=== PATIENT | male | born 1980 | race Hispanic/Latino ===

== ENCOUNTER 2018-10-27 10:49 | Observation (INO) | payer OTHER ==
[~2018-10-27] VITALS: Ht 170.2 cm; Wt 86.2 kg
--- OUTSIDE RECORDS SUMMARY | 2018-10-27 10:51 | XMS REPORT | Clinical Summary ---
Author Author AR[facility] Address Unknown Phone Unavailable Care Team Providers Care Academic Intern Name Role Phone Pcp, No PCP Unavailable Allergies No Known Allergies Medications End Date Status Medication Sig Dispensed Refills Start Date Active omega-3 fatty acids-fish Take 2 g by 0 oil 340-1,000 mg Cap per mouth 2 (two) capsule times daily. Active Problems Problem Noted Date Achilles rupture, right 10/26/2018 Encounters Care Team Description Date Type Specialty Deb Morales RN Follow-up 10/27/2018 Telephone Anesthesiology Iggy Robertson MD REPAIR,ACHILLES TENDON 10/26/2018 Surgery Randell Ugalde MD 10/26/2018 Anesthesia Event Iggy Robertson MD 10/26/2018 Hospital Encounter after 10/26/2017 Social History Date Tobacco Use Types Packs/Day Years Used Never Smoker Smokeless Tobacco: Never Used Alcohol Use Drinks/Week oz/Week Comments Yes occ Sex Assigned at Date Recorded Not on file Industry Job Start Date Occupation Not on file Not on file Not on file Travel End Travel History Travel Start No recent travel history available. Last Filed Vital Signs Time Taken Vital Sign Reading 10/26/2018 12:50 PM CDT Blood Pressure 122/69 10/26/2018 12:50 PM CDT Pulse 74 10/26/2018 12:50 PM CDT Temperature 36.6 C (97.9 F) 10/26/2018 12:50 PM CDT Respiratory Rate 16 10/26/2018 12:50 PM CDT Oxygen Saturation 98% - Inhaled Oxygen - Concentration 10/26/2018 8:23 AM CDT Weight 83.1 kg (183 lb 1.6 oz) 10/26/2018 8:23 AM CDT Height 170.2 cm (5' 7") 10/26/2018 8:23 AM CDT Body Mass Index 28.68 Plan of Treatment Not on file Implants Device Identifier Shelf Expiration Date Model / Serial / Lot Implanted Type Area Manufactur er 10/22/2019 [id number] / / [id number] Sys Bio Comp Achilles Mid Sub IMPLANTS [employer] [id number] - [id number] Implanted: Qty: 1 on 10/26/2018 by Iggy Robertson MD 02/20/2023 [id number] / / [id number] Pars Suture Implant System [employer] Implanted: Qty: 1 on 10/26/2018 by Iggy Robertson MD Procedures Comments Procedure Name Priority Date/Time Associated Diagnosis UT AN PERINEURAL CATH - Routine 10/26/2018 NO CHARGE 10:01 AM CDT after 10/26/2017 Results * ANESTHESIA PERIPHERAL BLOCK (10/26/2018 10:01 AM CDT) Narrative Performed At [facility] 10/26/2018 10:02 AM Peripheral Block Patient location during procedure: pre-procedure Start time: 10/26/2018 9:36 AM End time: 10/26/2018 9:54 AM Procedure Indication: procedure for pain, at surgeon's request and post-op pain management Preanesthetic Checklist Completed: patient identified, pre-op evaluation, timeout performed, IV checked, risks and benefits discussed, monitors and equipment checked, anesthesia consent given, prep site dry prior to draping and maximum sterile barriers were used: cap, mask, sterile gown, sterile gloves, and large sterile sheet Staffing Anesthesiologist: Andre Thompson MD Resident/CARTON CATCHER: [facility] Performed: personally Prep Prep: chlorhexidine gluconate and isopropyl alcohol Procedures: sterile gloves, surgical mask, surgical hat, sterile technique and prep and sterile drape applied Peripheral Nerve Block Patient position: prone Patient monitoring: EKG, HR, BP and SpO2 Laterality: right Block type: popliteal Injection technique: catheter ultrasound guided - in plane, prescan was completed prior to procedure and needle tip was visualized throughout the entire procedure ultrasound image saved Block Dose: ropivicaine and catheter Infiltration strength: 0.35 % Dose: 35 mL Needle Needle type: Pajunk. Needle gauge: 18 G Needle length: 75mm. Needle Localization:anatomical landmarks and US guided Catheter type: open end Catheter size: 20 G Hydrodissection? yes Catheter tunneled? yes Dressing: Occlusive dressing applied in sterile fashion and Dermabond applied at the catheter insertion site Assessment Injection assessment: incremental injection and negative aspiration for heme LOC: Sedated with meaningful contact supplemental oxygen used.no evidence of intravascular injection and no heart rate changeno paresthesia patient had no immediate complications and patient tolerated the procedure well Additional Notes Dr. Thompson present throughout procedure Procedure Note [facility] - 10/26/2018 10:01 AM CDT Peripheral Block Patient location during procedure: pre-procedure Start time: 10/26/2018 9:36 AM End time: 10/26/2018 9:54 AM Procedure Indication: procedure for pain, at surgeon's request and post-op pain management Preanesthetic Checklist Completed: patient identified, pre-op evaluation, timeout performed, IV checked, risks and benefits discussed, monitors and equipment checked, anesthesia consent given, prep site dry prior to draping and maximum sterile barriers were used: cap, mask, sterile gown, sterile gloves, and large sterile sheet Staffing Anesthesiologist: Andre Thompson MD Resident/CARTON CATCHER: [facility] Performed: personally Prep Prep: chlorhexidine gluconate and isopropyl alcohol Procedures: sterile gloves, surgical mask, surgical hat, sterile technique and prep and sterile drape applied Peripheral Nerve Block Patient position: prone Patient monitoring: EKG, HR, BP and SpO2 Laterality: right Block type: popliteal Injection technique: catheter ultrasound guided - in plane, prescan was completed prior to procedure and needle tip was visualized throughout the entire procedure ultrasound image saved Block Dose: ropivicaine and catheter Infiltration strength: 0.35 % Dose: 35 mL Needle Needle type: Pajunk. Needle gauge: 18 G Needle length: 75mm. Needle Localization: anatomical landmarks and US guided Catheter type: open end Catheter size: 20 G Hydrodissection? yes Catheter tunneled? yes Dressing: Occlusive dressing applied in sterile fashion and Dermabond applied at the catheter insertion site Assessment Injection assessment: incremental injection and negative aspiration for heme LOC: Sedated with meaningful contact supplemental oxygen used.no evidence of intravascular injection and no heart rate changeno paresthesia patient had no immediate complications and patient tolerated the procedure well Additional Notes Dr. Thompson present throughout procedure after 10/26/2017 Insurance Payer Benefit Subscriber ID Type Phone Address Plan / Group DESHAWN HESS xxxxxxxxxxx SUPERIOR Advance Directives For more information, please contact: [address] [address] Date Inactivated Comments Code Status Date Activated 10/26/2018 3:47 PM Full Code 10/26/2018 8:00 AM This code status was determined by: Patient
[2018-10-27] MEDS ORDERED: SODIUM CHLORIDE 0.9% 1000ML 1,000 ML IV STA (11:37)
[2018-10-27] MEDS ORDERED: ASPIRIN 81 MG CHEW TAB PO NR (12:02)
[2018-10-27 12:06] LABS: BASOPHILS % 0.4 % (0.0-1.0); EOSINOPHILS # (AUTO) 0.1 (0.0-0.4); EOSINOPHILS % 0.5 % (0.0-6.0); HEMATOCRIT 43.2 % (38.2-49.6); HEMOGLOBIN 14.1 g/dL (14.0-18.0); LYMPHOCYTES % 27.9 % (18.0-39.1); MEAN CORPUSCULAR HEMOGLOBIN 29.6 pg (28-32); MEAN CORPUSCULAR HGB CONC 32.6 g/dL (31-35); MEAN CORPUSCULAR VOLUME 90.6 fL (81-99); MONOCYTES # (AUTO) 0.6 (0.2-0.8); MONOCYTES % 5.8 % (4.4-11.3); NEUTROPHILS # (AUTO) 6.9 (2.1-6.9); PLATELET COUNT 177 x10e3/uL (140-360); RED BLOOD COUNT 4.77 x10e6/uL (4.3-5.7); RED CELL DISTRIBUTION WIDTH 13.3 % (11.7-14.4)
[2018-10-27 12:14] LABS: INR 0.88; PROTHROMBIN TIME 12.4 seconds (11.9-14.5)
[2018-10-27 12:15] LABS: PARTIAL THROMBOPLASTIN TIME 28.4 seconds (23.8-35.5)
[2018-10-27 12:22] LABS: ALANINE AMINOTRANSFERASE 54 IU/L (0-55); ALBUMIN 3.7 g/dL (3.5-5.0); ALBUMIN/GLOBULIN RATIO 1.1 (0.8-2.0); ALKALINE PHOSPHATASE 76 IU/L (40-150); ANION GAP 12.7 mmol/L (8-16); BLOOD UREA NITROGEN 7 mg/dL (7-26); BUN/CREATININE RATIO 8 (6-25); CALCIUM 9.7 mg/dL (8.4-10.2); CARBON DIOXIDE 26 mmol/L (22-29); CHLORIDE 105 mmol/L (98-107); CREATINE KINASE 296 IU/L (30-200); CREATININE, SERUM 0.85 mg/dL (0.72-1.25); EST GLOMERULAR FILTRATION RATE > 60 ML/MIN (60-); GLUCOSE 118 mg/dL (74-118); MAGNESIUM 2.1 MG/DL (1.3-2.1); POTASSIUM 3.7 mmol/L (3.5-5.1); SODIUM 140 mmol/L (136-145)
--- NOTE | 2018-10-27 13:02 | Diagnostic Imaging Report ---
EXAMINATION: CHEST 2 VIEWS INDICATION: SOB. COMPARISON: None FINDINGS: TUBES and LINES: None. LUNGS: Lungs are not well inflated. Lungs are clear. There is no evidence of pneumonia or pulmonary edema. PLEURA: No pleural effusion or pneumothorax. HEART AND MEDIASTINUM: The cardiomediastinal silhouette is unremarkable. BONES AND SOFT TISSUES: No acute osseous lesion. Soft tissues are unremarkable. UPPER ABDOMEN: No free air under the diaphragm. IMPRESSION: No acute thoracic abnormality. Signed by: Dr. Debbi Mendoza M.D. on 10/27/2018 12:58 PM
[2018-10-27] MEDS ORDERED: ONDANSETRON HCL INJ 2MG/ML 2ML 2 MG/ML VIAL IV PRN (13:30)
--- OUTSIDE RECORDS SUMMARY | 2018-10-27 13:30 | XMS REPORT | Clinical Summary ---
Author Author [facility] Address Unknown Phone Unavailable Care Team Providers Care Worm Sorter Name Role Phone Pcp, No PCP Unavailable [...] Lot Implanted Type Area Manufactur er 10/22/2019 [id number] / / [id number] Sys Bio Comp Achilles Mid Sub IMPLANTS [employer] [id number] - [id number] Implanted: Qty: 1 on 10/26/2018 by Iggy Robertson MD 02/20/2023 [id number] / / [id number] Pars Suture Implant System [employer] Implanted: Qty: 1 on 10/26/2018 by Iggy Robertson MD Procedures Comments Procedure Name Priority Date/Time Associated Diagnosis DC AN PERINEURAL CATH - Routine 10/26/2018 NO [...] sterile sheet Staffing Anesthesiologist: Andre Thompson MD Resident/HEAD BAKER: [facility] Performed: personally Prep Prep: chlorhexidine [...] sterile sheet Staffing Anesthesiologist: Andre Thompson MD Resident/HEAD BAKER: [facility] Performed: personally Prep Prep: chlorhexidine [...] Advance Directives For more information, please contact: [address] [address] Date Inactivated Comments Code Status Date Activated 10/26/2018 3:47 PM Full Code 10/26/2018 8:00 AM This code status was determined by: Patient
--- OUTSIDE RECORDS SUMMARY | 2018-10-27 13:30 | XMS REPORT ---
Author Author [facility] Address Unknown Phone Unavailable Care Team Providers Care Fitness Center Attendant Name Role Phone Colt MCCALLUM Unavailable Unavailable Problems This patient has no known problems. Allergies, Adverse Reactions, Alerts This patient has no known allergies or adverse reactions. Medications This patient has no known medications. Results Test Description Test Time Test Comments Text Results Atomic Results Result Comments CHEST 2 VIEWS 2018-10-27 12:57:00 [facility] [address] [address] Patient Name: MARIAJOSE MOSQUERA MR #: [id number] : 1980 Age/Sex: 37/M Req #: [id number] Adm Physician: Ordered by: SANA MCCALLUM MD Report #: [id number] Location: ER Room/Bed: Procedure: [id number] DX/CHEST 2 VIEWS Exam Date: 10/27/18 Exam Time: 1220 REPORT STATUS: Signed EXAMINATION: CHEST 2 VIEWS INDICATION: SOB. C OMPARISON: None FINDINGS: TUBES and LINES: None. LUNGS: Lungs are not well inflated. Lungs are clear. There is no evidence of pneumonia or pulmonary edema. PLEURA: No pleural effusion or pneumothorax. HEART AND MEDIASTINUM: The cardiomediastinal silhouette is unremarkable. BONES AND SOFT TISSUES: No acute osseous lesion. Soft tissues are unremarkable. UPPER ABDOMEN: No free air under the diaphragm. IMPRESSION: No acute thoracic abnormality. Signed by: Dr. Debbi Mendoza M.D. on 10/27/2018 12:58 PM Dictated By: ERNESTINA MENDOZA MD, MD [id number] Transcribed By: HAMMAD on 10/27/18 1259 COPY TO: SANA MCCALLUM MD
[2018-10-27 15:02] VITALS: BP 145/69
[2018-10-27 15:07] VITALS: BP 145/69
[2018-10-27] MEDS ORDERED: NORCO 10-325 T1 EACH PO (15:07)
[2018-10-27 15:58] VITALS: BP 137/81
[2018-10-27] MEDS: FAMOTIDINE 20 MG/2 ML VIAL IV SCH (16:18)
[2018-10-27 16:22] VITALS: BP 137/81
[2018-10-27] MEDS: HYDROCODONE/APAP 10MG-325MG TAB PO PRN ×2 (17:38→21:52)
--- NOTE | 2018-10-27 18:06 | NUR ---
patient received from er via stretcher. see admit assess. sinus rhythm with occ pac. right leg nancy wrapped post achilles repair with Ropivicaine pump in place. patient C/O chest pain of 3. Dr Villalobos consulted and echo ordered. family at . vitals stable with no distress.
--- NOTE | 2018-10-27 19:26 | Consultation ---
DATE OF CONSULTATION: 10/27/2018 Cardiology Consultation REASON FOR CONSULTATION: Abnormal ECG and chest pain. HISTORY OF PRESENT ILLNESS: This is a 37-year-old male without significant past medical history, who presents with complaints of chest pain and shortness of breath. The patient reports he had Achilles tendon repair at [facility] yesterday. He was discharged home in the early afternoon at approximately midnight he developed chest pressure, especially shortness of breath. The pain was 9/10 in severity and it lasted several hours. Due to these complaints, he presented to the ER for further evaluation. EKG in the ER revealed sinus rhythm with PACs as well as ST and T-wave abnormalities. The patient was subsequently admitted for further evaluation. The patient denies any edema, orthopnea or PND, or any history of heart disease. REVIEW OF SYSTEMS: Negative as per HPI. PAST MEDICAL HISTORY: Denied. PAST SURGICAL HISTORY: 1. Achilles tendon repair. 2. Hernia surgery. SOCIAL HISTORY: No tobacco or illicit drugs. Occasional alcohol. FAMILY HISTORY: Denied. ALLERGIES: NO KNOWN DRUG ALLERGIES. MEDICATIONS: Please see EMR. PHYSICAL EXAMINATION: VITAL SIGNS: Temperature 97.9 degrees, pulse 88, respiratory rate 18, blood pressure 137/81, and oxygen saturation 98% on room air. GENERAL: Well-developed, well-nourished man, in no acute distress. Awake and alert. HEENT: Normocephalic, atraumatic. Pupils equal. No scleral icterus. NECK: Supple. No thyromegaly or cervical lymphadenopathy. No carotid bruits. LUNGS: Clear to auscultation bilaterally. No wheezes or crackles. CARDIOVASCULAR: Normal rate, regular rhythm. No murmur. Normal S1, S2. ABDOMEN: Soft, nontender. EXTREMITIES: No edema. Right foot with dressing in place. NEUROLOGIC: Nonfocal exam. LABORATORY DATA: WBC 10.56, hemoglobin 14.1, hematocrit 43.2, platelets 177. Sodium 140, potassium 3.7, chloride 105, CO2 of 26, BUN 7, creatinine 0.85. Troponin 0.003. BNP 38.7. Chest x-ray, no acute thoracic abnormality. IMPRESSION: 1. Chest pain. 2. Shortness of breath. 3. Achilles tendon repair. RECOMMENDATIONS: Trend cardiac markers to rule out myocardial infarction. Echocardiogram has been obtained for further evaluation. Further recommendations pending test results. Given recent surgery, if the patient ruled out for myocardial infarction and echo was normal consider CT of the chest to rule out PE. Thank you for this consult. We will continue to follow. Rimma Villalobos MD ABS/MODL /[id number]
[2018-10-27 20:00] VITALS: BP 140/86
[2018-10-27 20:17] LABS: CREATINE KINASE MB 2.3 ng/mL (0-5.0)
[2018-10-28] VITALS: BP 141/83
[2018-10-28] MEDS: FAMOTIDINE 20 MG/2 ML VIAL IV SCH (00:37)
[2018-10-28 04:00] VITALS: BP 123/72
[2018-10-28 06:29] LABS: BASOPHILS % 0.5 % (0.0-1.0); EOSINOPHILS # (AUTO) 0.1 (0.0-0.4); EOSINOPHILS % 1.6 % (0.0-6.0); HEMATOCRIT 42.2 % (38.2-49.6); HEMOGLOBIN 13.8 g/dL (14.0-18.0); LYMPHOCYTES # (AUTO) 3.6 (1.0-3.2); LYMPHOCYTES % 43.2 % (18.0-39.1); MEAN CORPUSCULAR HGB CONC 32.7 g/dL (31-35); MEAN CORPUSCULAR VOLUME 91.7 fL (81-99); MONOCYTES # (AUTO) 0.5 (0.2-0.8); NEUTROPHILS % 48.5 % (38.7-80.0); PLATELET COUNT 169 x10e3/uL (140-360); RED CELL DISTRIBUTION WIDTH 13.5 % (11.7-14.4)
--- NOTE | 2018-10-28 06:40 | NUR ---
handoff report received. patient aware of change with at bedside. call siegel within reach and bed in lowest position.
[2018-10-28 07:00] VITALS: BP 120/76
[2018-10-28 08:00] VITALS: BP 120/76
[2018-10-28 08:13] LABS: ALANINE AMINOTRANSFERASE 60 IU/L (0-55); ALBUMIN 3.5 g/dL (3.5-5.0); ALBUMIN/GLOBULIN RATIO 1.2 (0.8-2.0); ALKALINE PHOSPHATASE 72 IU/L (40-150); ANION GAP 11.1 mmol/L (8-16); BLOOD UREA NITROGEN 8 mg/dL (7-26); BUN/CREATININE RATIO 9 (6-25); CALCIUM 8.9 mg/dL (8.4-10.2); CARBON DIOXIDE 27 mmol/L (22-29); CHLORIDE 106 mmol/L (98-107); CREATININE, SERUM 0.91 mg/dL (0.72-1.25); EST GLOMERULAR FILTRATION RATE > 60 ML/MIN (60-); GLUCOSE 85 mg/dL (74-118); POTASSIUM 4.1 mmol/L (3.5-5.1); SODIUM 140 mmol/L (136-145)
[2018-10-28] MEDS ORDERED: ASPIRIN 81 MG ENTERIC COATED PO SCH (09:00)
[2018-10-28 10:15] LABS: CREATINE KINASE MB 1.6 ng/mL (0-5.0)
[2018-10-28 10:21] LABS: CHOL/HDL RATIO 2.3 (3.9-4.7); CHOLESTEROL 131 MD/DL (0-199); HDL CHOLESTEROL 56 MG/DL (40-60); LDL CHOLESTEROL 60 MG/DL (60-130); TRIGLYCERIDES 74 MG/DL (0-149)
[2018-10-28] MEDS ORDERED: CELEBREX100 MG PO (11:18)
--- NOTE | 2018-10-28 11:29 | NUR ---
patient alert and oriented. Discharge instructions given at this time, both verbalized understanding. IV discontinued, catheter in tact and small dressing applied. patient to be wheeled out to personal auto for to drive home.
--- NOTE | 2018-10-28 11:39 | Progress Note ---
DATE: 10/28/2018 Cardiology Progress Note SUBJECTIVE: The patient denies chest pain or shortness of breath. OBJECTIVE: VITAL SIGNS: Temperature 97.4 degrees, pulse 84, respiratory rate 16, blood pressure 120/76, oxygen saturation 100% on room air. GENERAL: Awake, alert, no acute distress. LUNGS: Clear to auscultation bilaterally. No wheezes or crackles. CARDIOVASCULAR: Normal rate, regular rhythm. No murmur. Normal S1, S2. ABDOMEN: Soft, nontender. EXTREMITIES: No edema. Right foot with dressing in place. CARDIAC MEDICATIONS: Aspirin 81 mg p.o. daily. LABORATORY DATA: WBC 8.31, hemoglobin 13.8, hematocrit 42.2, platelets 169. Sodium 140, potassium 4.1, chloride 106, CO2 of 27, BUN 8, creatinine 0.91. Troponin 0.009. TELEMETRY: Normal sinus rhythm. IMPRESSION: 1. Chest pain. 2. Shortness of breath. 3. Achilles tendon repair. RECOMMENDATIONS: No evidence of myocardial infarction on serial cardiac biomarkers. Echocardiogram demonstrated normal LVEF. Consider CT of the chest to rule out PE given recent surgery. Otherwise, we will repeat EKG. Recommend outpatient stress test to evaluate for ischemia once he has recovered from his surgery. Thank you for this consult. We will continue to follow. Rimma Villalobos MD ABS/MODL /[id number]
--- NOTE | 2018-10-28 17:54 | History and Physical ---
CHIEF COMPLAINT: Chest pain, atypical after taking hydrocodone. HISTORY OF PRESENT ILLNESS: A 37-year-old male, recently had his right Achilles surgery in [facility]. The patient came in with some atypical chest pain after he had taken hydrocodone multiple doses. Every time he took the medication, he felt chest pressure and anxious. The patient is otherwise stable. Cardiac enzymes negative. EKG, nonspecific changes. PAST MEDICAL HISTORY: Right Achilles surgery/repair. SOCIAL HISTORY: The patient does not smoke or use alcohol. No recreational drug use. ALLERGIES: NO KNOWN ALLERGIES. HOME MEDICATIONS: [place] 10 mg. PHYSICAL EXAMINATION: VITAL SIGNS: Temperature is 98, blood pressure 120/76, pulse rate 84, respirations 20. GENERAL: The patient is not in acute distress. HEENT: Normocephalic, atraumatic. Anicteric. NECK: Supple grossly. PULMONARY: Clear. CARDIOVASCULAR: Regular rate and rhythm. ABDOMEN: Soft. Unremarkable. EXTREMITIES: Right lower extremity status post Achilles tendon repair. NEUROLOGIC: No focal deficits. LABORATORY DATA: Sodium is 140, potassium 4.1, chloride 106, bicarb 27, BUN 8, creatinine 0.9, glucose 85. WBCs 8.3, hemoglobin 13.8, hematocrit 42.2, platelet 169. Cardiac enzymes are negative. IMPRESSION: Atypical chest pain, possible anxiety secondary to side effect of the [place] 10 mg, which the patient taken for his right foot surgery of the tendon repair. PLAN: The patient's cardiac enzymes are negative. Echocardiogram. EKG repeat. If all those are otherwise stable, the patient may go home. Follow up as an outpatient with Dr. Rimma Villalobos for any further planning. MD DIDI Cesar/TOMMY /[id number]
--- NOTE | 2018-10-29 02:01 | Discharge Summary ---
Please review my history and physical recently dictated. FINAL DIAGNOSIS: Atypical chest pain and pressure with possible anxiety attack secondary to side effect of the [place] 10 mg, taken for his right Achilles tendon repair. Please review my discharge summary. The patient may go home today. We will give the patient Celebrex 200 mg twice a day as needed for pain. He will follow up with Dr. Villalobos for outpatient workup if needed. Echocardiogram is done. EKG, no changes. The patient is stable, discharged home today. MD DIDI Cesar/PAPITOL /[id number]
== END 2018-10-28 11:32 | disposition home or self-care (01) ==
LOC: ER 10:49 → ERHOLD 13:27 → IMCU 14:40
PROVIDERS: ADMIT Internal Medicine; ATTEND Internal Medicine
DX: R07.89 Other chest pain (principal); E78.5 Hyperlipidemia, unspecified; K21.9 Gastro-esophageal reflux disease without esophagitis; F41.9 Anxiety disorder, unspecified; Z98.890 Other specified postprocedural states
CPT/HCPCS: 36415; 71046; 80053; 80061; 82550; 82553; 83735; 83880; 84484; 85025; 85379; 85610; 85730; 93005; 93306; 99284; G0378; J7030

== ENCOUNTER 2021-01-26 19:04 | Emergency (ER) | payer SELFPAY ==
[~2021-01-26] VITALS: Ht 170.2 cm; Wt 86.2 kg
[~2021-01-26 19:04] MED LIST: CELEBREX100 MG PO; NORCO 10-325 T1 EACH PO
[2021-01-26 22:13] LABS: BASOPHILS # (AUTO) 0.1 (0.0-0.1); BASOPHILS % 0.7 % (0.0-1.0); EOSINOPHILS # (AUTO) 0.1 (0.0-0.4); EOSINOPHILS % 1.2 % (0.0-6.0); HEMATOCRIT 47.2 % (38.2-49.6); HEMOGLOBIN 15.5 g/dL (14.0-18.0); LYMPHOCYTES # (AUTO) 3.7 (1.0-3.2); LYMPHOCYTES % 48.7 % (18.0-39.1); MEAN CORPUSCULAR HGB CONC 32.8 g/dL (31-35); MEAN CORPUSCULAR VOLUME 91.3 fL (81-99); MONOCYTES # (AUTO) 0.6 (0.2-0.8); MONOCYTES % 7.4 % (4.4-11.3); NEUTROPHILS # (AUTO) 3.2 (2.1-6.9); NEUTROPHILS % 41.7 % (38.7-80.0); PLATELET COUNT 225 x10e3/uL (140-360); RED BLOOD COUNT 5.17 x10e6/uL (4.3-5.7); RED CELL DISTRIBUTION WIDTH 13.8 % (11.7-14.4)
[2021-01-26 22:27] LABS: ALANINE AMINOTRANSFERASE 89 IU/L (0-55); ALBUMIN 4.6 g/dL (3.5-5.0); ALBUMIN/GLOBULIN RATIO 1.2 (0.8-2.0); ALKALINE PHOSPHATASE 95 IU/L (40-150); ANION GAP 16.6 mmol/L (8-16); BLOOD UREA NITROGEN 9 mg/dL (7-26); BUN/CREATININE RATIO 9 (6-25); CALCIUM 9.7 mg/dL (8.4-10.2); CARBON DIOXIDE 24 mmol/L (22-29); CHLORIDE 102 mmol/L (98-107); CREATINE KINASE 205 IU/L (30-200); CREATININE, SERUM 0.98 mg/dL (0.72-1.25); EST GLOMERULAR FILTRATION RATE 86 ML/MIN (60-); GLUCOSE 103 mg/dL (74-118); POTASSIUM 3.6 mmol/L (3.5-5.1); SODIUM 139 mmol/L (136-145)
[2021-01-26] MEDS ORDERED: IOPAMIDOL 370 MG/ML 200 ML INFUS..BTL INJ ONE (23:12)
[2021-01-26] MEDS ORDERED: SODIUM CHLORIDE 0.9% 50ML 50 ML ONE (23:13)
[2021-01-26 23:19] LABS: CLARITY,URINE CLEAR (CLEAR); COLOR,URINE YELLOW (YELLOW); KETONES,URINE NEGATIVE (NEGATIVE); LEUKOCYTE ESTERASE ,URINE NEGATIVE (NEGATIVE); NITRITE,URINE NEGATIVE (NEGATIVE); PROTEIN,URINE DIPSTICK NEGATIVE (NEGATIVE); URINE UROBILINOGEN 0.2 mg/dL (0.2 - 1)
[2021-01-26 23:24] LABS: BACTERIA,URINE RARE /HPF; EPITHELIAL CELLS,URINE RARE /LPF; WBC,URINE (MAN) 0-5 /HPF (0-5)
[2021-01-27 00:54] VITALS: BP 126/95
== END 2021-01-27 01:01 | disposition home or self-care (01) ==
LOC: ER 21:59
DX: R07.9 Chest pain, unspecified (principal); R94.31 Abnormal electrocardiogram [ECG] [EKG]; K21.9 Gastro-esophageal reflux disease without esophagitis; E78.5 Hyperlipidemia, unspecified
CPT/HCPCS: 36415; 71260; 80053; 81001; 82550; 82553; 83690; 84484; 85025; 93005; 99284; Q9967

== ENCOUNTER 2024-06-09 20:23 | Emergency (ER) | payer OTHER ==
[~2024-06-09] VITALS: Ht 170.2 cm; Wt 86.2 kg
[2024-06-09 20:51] LABS: BASOPHILS # (AUTO) 0.1 (0.0-0.1); BASOPHILS % 0.4 % (0.0-1.0); EOSINOPHILS % 0.3 % (0.0-6.0); HEMATOCRIT 47.7 % (38.2-49.6); LYMPHOCYTES % 16.7 % (18.0-39.1); MEAN CORPUSCULAR HGB CONC 31.4 g/dL (31-35); MEAN CORPUSCULAR VOLUME 95.4 fL (81-99); MONOCYTES # (AUTO) 1.1 (0.2-0.8); MONOCYTES % 9.2 % (4.4-11.3); NEUTROPHILS # (AUTO) 8.8 (2.1-6.9); NEUTROPHILS % 73.1 % (38.7-80.0); PLATELET COUNT 177 x10e3/uL (140-360); RED CELL DISTRIBUTION WIDTH 13.7 % (11.7-14.4); WHITE BLOOD COUNT 12.02 x10e3/uL (4.8-10.8)
[2024-06-09] MEDS ORDERED: SODIUM CHLORIDE 0.9% 1000ML 1,000 ML ONE (20:52)
[2024-06-09] MEDS ORDERED: PIPERACILLIN/TAZOBACTAM 3.375 GM VIAL ONE (20:52)
[2024-06-09] MEDS ORDERED: ACETAMINOPHEN 325 MG TAB ONE (20:52)
[2024-06-09] MEDS ORDERED: Vancomycin IV 1 GM VIAL ONE (20:52)
[2024-06-09] MEDS ORDERED: SODIUM CHLORIDE 0.9% 250ML 250 ML ONE (20:52)
[2024-06-09] MEDS: SODIUM CHLORIDE 0.9% 1000ML 1,000 ML IV ONE ×2 (20:54→22:27)
[2024-06-09] MEDS: ACETAMINOPHEN 325 MG TAB PO ONE (20:55)
[2024-06-09] MEDS ORDERED: KETOROLAC TROMETHAMINE 30 MG/ML VIAL ONE (21:01)
[2024-06-09] MEDS: KETOROLAC TROMETHAMINE 30 MG/ML VIAL IV STA (21:07)
[2024-06-09 21:09] LABS: ALBUMIN 4.2 g/dL (3.5-5.0); ALBUMIN/GLOBULIN RATIO 1.2 (0.8-2.0); ANION GAP 18.6 mmol/L (8-16); BILIRUBIN,TOTAL 1.3 mg/dL (0.2-1.2); CALCIUM 9.9 mg/dL (8.4-10.2); CREATININE, SERUM 0.99 mg/dL (0.72-1.25); POTASSIUM 3.6 mmol/L (3.5-5.1); TOTAL PROTEIN 7.8 g/dL (6.5-8.1)
[2024-06-09 21:15] LABS: BILIRUBIN,URINE NEGATIVE (NEGATIVE); CLARITY,URINE CLOUDY (CLEAR); COLOR,URINE YELLOW (YELLOW); GLUCOSE, URINE NEGATIVE (NEGATIVE); KETONES,URINE NEGATIVE (NEGATIVE); LEUKOCYTE ESTERASE ,URINE NEGATIVE (NEGATIVE); NITRITE,URINE NEGATIVE (NEGATIVE); PH,URINE 7.5 (5 - 7); PROTEIN,URINE DIPSTICK NEGATIVE (NEGATIVE); URINE UROBILINOGEN 0.2 mg/dL (0.2 - 1)
[2024-06-09 21:15] LABS: TROPONIN I 0.004 ng/mL (0-0.300)
[2024-06-09] MEDS: Vancomycin IV 1 GM in SODIUM CHLORIDE 0.9% 250ML 250 ML IV ONE (21:23)
[2024-06-09 21:35] LABS: WBC,URINE (MAN) 0-5 /HPF (0-5)
[2024-06-09 21:36] LABS: AMORPHOUS SEDIMENT,URINE MANY (FEW); BACTERIA,URINE MANY /HPF; EPITHELIAL CELLS,URINE FEW /LPF; RBC,URINE 0-5 /HPF (0-5)
[2024-06-10 00:06] VITALS: TEMP 99.8
[2024-06-10] MEDS: ONDANSETRON HCL INJ 2MG/ML 2ML 2 MG/ML VIAL IV STA (00:20)
[2024-06-10] MEDS: Morphine 4mg INJECTION 4 MG/ML INJ IV ONE (00:20)
[2024-06-10 00:37] VITALS: PULSE 95; RESP 16; O2SAT 95
== END 2024-06-10 00:42 | disposition other institution (70) ==
LOC: ER 20:25
DX: R50.82 Postprocedural fever (principal); M25.561 Pain in right knee; M79.661 Pain in right lower leg; E78.5 Hyperlipidemia, unspecified; K21.9 Gastro-esophageal reflux disease without esophagitis; M10.9 Gout, unspecified; Z11.52 Encounter for screening for COVID-19; R94.31 Abnormal electrocardiogram [ECG] [EKG]
CPT/HCPCS: 0223U; 36415; 71045; 80053; 81001; 82550; 83605; 84484; 84550; 85025; 87040; 87086; 87400; 93005; 99284; J2270; J2405; J7030; 87186; J1885; J2543; J7050